=== PATIENT | male | born 1935 | race Caucasian/White ===

== ENCOUNTER → 2023-09-26 15:09 | Outpatient (REF) | payer MEDICARE, BC, SELFPAY ==
[2023-09-26 16:40] LABS: Hematocrit 30.3 % (39.0-52.0); Hemoglobin 9.9 g/dL (13.0-18.0)
[2023-09-26 16:50] LABS: Protein/creatinine Ratio 0.1; Urine Protein 10 mg/dl
[2023-09-26 16:58] LABS: Albumin 3.4 g/dl (3.5-5.0); Blood Urea Nitrogen 67 mg/dl (9-20); Carbon Dioxide 28 mmol/L (22-30); Chloride 102 mmol/L (98-107); Glucose 100 mg/dl (70-99); Iron 60 ug/dl (49-181); Phosphorus 3.9 mg/dl (2.5-4.5); Potassium 5.1 mmol/L (3.5-5.1); Sodium 137 mmol/L (135-145); eGFR 17.82
[2023-09-26 17:07] LABS: Percent Saturation 24 % (20-50); Total Iron Binding Capacity 249 ug/dl (261-462)
[2023-09-26 17:12] LABS: Intact PTH 96.6 pg/ml (13.6-85.8)
[2023-09-26 17:29] LABS: TSH Reflex To Free T4 2.84 uIU/ml (0.47-4.68)
== END ==
LOC: REG 15:09
PROVIDERS: ATTENDING PHYSICIAN Specialist; FAMILY PHYSICIAN Family Medicine
DX: N18.4 Chronic kidney disease, stage 4 (severe) (principal); D63.1 Anemia in chronic kidney disease; E03.9 Hypothyroidism, unspecified
CPT/HCPCS: 36415; 80069; 82570; 83540; 83550; 83970; 84156; 84443; 85014; 85018

== ENCOUNTER → 2023-11-03 14:05 | Outpatient (REF) | payer MEDICARE, BC, SELFPAY ==
[2023-11-03 14:28] LABS: Hematocrit 31.7 % (39.0-52.0); Hemoglobin 10.2 g/dL (13.0-18.0)
[2023-11-03 14:58] LABS: Blood Urea Nitrogen 66 mg/dl (9-20); Carbon Dioxide 27 mmol/L (22-30); Chloride 104 mmol/L (98-107); Glucose 150 mg/dl (70-99); Potassium 4.7 mmol/L (3.5-5.1); Sodium 136 mmol/L (135-145); eGFR 20.05
== END ==
LOC: REG 14:05
PROVIDERS: ATTENDING PHYSICIAN Specialist
DX: R79.89 Other specified abnormal findings of blood chemistry (principal); N18.4 Chronic kidney disease, stage 4 (severe); I10 Essential (primary) hypertension; D63.1 Anemia in chronic kidney disease
CPT/HCPCS: 36415; 80048; 85014; 85018